=== PATIENT | male | born 1975 | race Caucasian/White ===

== ENCOUNTER 2025-08-09 05:36 | Day surgery (SDC) | payer BC ==
[2025-08-01 14:51] VITALS: BMI 32.0
[2025-08-09 11:07] VITALS: TEMP 97.9
[2025-08-09 11:20] VITALS: RESP 18
[2025-08-09 12:09] VITALS: BP 124/80; PULSE 65
== END 2025-08-09 12:09 | disposition home or self-care (01) ==
LOC: JASU-ENDO 05:36
PROVIDERS: ATTEND Internal Medicine Gastroenterology
PROC: 0DBN8ZX Excision of Sigmoid Colon, Via Natural or Artificial Opening Endoscopic, Diagnostic (ICD-10-PCS; 2025-08-09)
PROC: 0DBM8ZX Excision of Descending Colon, Via Natural or Artificial Opening Endoscopic, Diagnostic (ICD-10-PCS; principal; 2025-08-09 10:00)
DX: Z12.11 Encounter for screening for malignant neoplasm of colon (principal); D12.5 Benign neoplasm of sigmoid colon; D12.4 Benign neoplasm of descending colon; K64.8 Other hemorrhoids; K57.30 Diverticulosis of large intestine without perforation or abscess without bleeding
CPT/HCPCS: 88305-TC